=== PATIENT | male | born 1985 | race Caucasian/White ===

== ENCOUNTER 2020-04-02 22:12 | Emergency (ER) | payer BC ==
[2020-04-03] MEDS ORDERED: KEFLEX CAP 250250 MG PO (02:16)
[2020-04-03] MEDS ORDERED: BACTRIM DS TAB1 EACH PO (02:16)
== END 2020-04-03 03:03 | disposition home or self-care (01) ==
LOC: ER1 22:12
DX: L05.91 Pilonidal cyst without abscess (principal); E07.9 Disorder of thyroid, unspecified
CPT/HCPCS: 10080; 99282